=== PATIENT | male | born 1980 | race Caucasian/White ===

== ENCOUNTER 2022-04-23 08:00 | Emergency (ER) | payer MEDICAID ==
[~2022-04-23] VITALS: Ht 165.1 cm; Wt 71.2 kg
[2022-04-23 08:02] VITALS: BP 149/79
[2022-04-23 08:12] VITALS: BP 149/79
[2022-04-23] MEDS ORDERED: IBUPROFEN 600 MG TAB PO ONE (08:20)
[2022-04-23] MEDS ORDERED: ACETAMINOPHEN EXTRA STRENGTH 500 MG TAB PO ONE (08:20)
--- NOTE | 2022-04-23 08:20 | NUR ---
42/M WALKED IN C/O DIFFICULTY BREATHING AND COUGH ACCOMPANIED BY BODY ACHE AND BACK PAIN. ONSET 1 WK. AFEBRILE AT BEDSIDE. AAOX4, AMBULATORY. VSS
--- NOTE | 2022-04-23 08:34 | NUR ---
LAB AT BEDSIDE. COVID AND FLU SWAB COLLECTED.
[2022-04-23 08:58] LABS: BASOPHILS % (AUTO) 0.4 % (0.0-2.0); EOSINOPHILS # (AUTO) 0.1 K/uL (0-0.4); EOSINOPHILS % (AUTO) 1.7 % (0.0-4.0); HEMATOCRIT 39.7 % (36-52); HEMOGLOBIN 13.2 g/dL (12.0-18.0); LYMPHOCYTES # (AUTO) 1.8 K/uL (2.0-11.5); LYMPHOCYTES % (AUTO) 26.6 % (20.5-51.1); MEAN CORPUSCULAR HEMOGLOBIN 30 pg (27-31); MEAN CORPUSCULAR HGB CONC 33 g/dL (33-37); MEAN CORPUSCULAR VOLUME 90.6 fL (80-94); MONOCYTES # (AUTO) 0.4 K/uL (0.8-1.0); NEUTROPHILS # (AUTO) 4.5 K/uL (1.8-7.7); NEUTROPHILS % (AUTO) 65.3 % (42.2-75.2); PLATELET COUNT (AUTO) 228 K/uL (140-450); RED BLOOD CELL COUNT(AUTO) 4.38 MIL/uL (4.20-6.10); RED CELL DISTRIBUTION WIDTH 13.8 % (11.6-13.7); WHITE BLOOD COUNT (AUTO) 6.8 K/uL (4.8-10.8)
[2022-04-23 09:11] LABS: ALBUMIN 3.5 g/dL (3.4-5.0); ANION GAP 12.5 (8-16); ASPARTATE AMINOTRANSFERASE 38 U/L (15-37); CARBON DIOXIDE 27.8 mmol/L (21-32); CHLORIDE 104 mmol/L (98-107); GFR ARICAN-AMERICAN 106 mL/min (>90); GLUCOSE 73 mg/dL (74-106); POTASSIUM 4.3 mmol/L (3.5-5.1); SODIUM SERUM 140 mmol/L (136-145); TOTAL BILIRUBIN 0.8 mg/dL (0.0-1.0); UREA NITROGEN, BLOOD 23 mg/dL (7-18)
[2022-04-23] MEDS ORDERED: ACET-10509 PO (09:57)
--- NOTE | 2022-04-23 10:00 | NUR ---
Patient discharged with v/s stable. Written and verbal after care instructions given and explained. Patient verbalized understanding. Ambulatory with steady gait. All questions addressed prior to discharge. Advised to follow up with PMD.
== END 2022-04-23 10:00 | disposition home or self-care (01) ==
LOC: MED 08:00
DX: R05.9 Cough, unspecified (principal); R53.83 Other fatigue; R53.81 Other malaise; Z20.822 Contact with and (suspected) exposure to COVID-19; F17.210 Nicotine dependence, cigarettes, uncomplicated; Z71.6 Tobacco abuse counseling; Z79.899 Other long term (current) drug therapy
CPT/HCPCS: 36415; 71045; 80053; 84484; 85025; 87426; 87804; 93005; 99285; Q0092